=== PATIENT | male | born 1930 | race Caucasian/White ===

== ENCOUNTER → 2019-11-17 | Outpatient (CLI) | payer MEDICARE ==
[~2019-11-17] MED LIST: CIPR500T86 PO; DIPH25CA57 PO; FLAVOXATE PO; INUL2TAB4 PO; LEVO25TA4 PO; METF500T17 PO; OMEG-69 PO; PROB500T PO; SENN8.6T98 PO; SERT100T PO; TAMS-14 PO
[2019-11-17 12:42] LABS: BASOPHIL # 0.1 10^3/uL (0.0-0.1); BASOPHIL % 0.7 % (0.0-0.2); EOSINOPHIL # 0.2 10^3/uL (0.0-0.2); EOSINOPHIL % 1.8 % (0.0-5.0); LYMPHOCYTES % 22.5 % (24.0-44.0); MEAN CORP HGB 29.2 pg (26-34); MONOCYTES # 0.6 10^3/uL (0.3-0.8); MONOCYTES % 6.9 % (5.0-12.0); NEUTROPHIL # 5.8 10^3/uL (1.8-7.7); NEUTROPHILS % 65.4 % (41.0-85.0); PLATELET COUNT 226 10^3/uL (150-400); RED CELL DISTRIBUTION WIDTH 13.7 % (11.5-14.5)
[2019-11-17 13:49] LABS: CALCIUM 9.7 mg/dL (8.4-10.5); CARBON DIOXIDE 24.5 mmol/L (20.0-32)
== END | disposition home or self-care (01) ==
LOC: LAB 11:56
PROVIDERS: ATTEND Nurse Practitioner Adult Health
DX: E11.65 Type 2 diabetes mellitus with hyperglycemia (principal); N42.30 Unspecified dysplasia of prostate; R39.15 Urgency of urination; Y92.017 Garden or yard in single-family (private) house as the place of occurrence of the external cause
CPT/HCPCS: 36415; 80053; 80061; 83036; 84153; 84436; 84439; 84443; 85025

== ENCOUNTER 2019-12-27 11:59 | Observation (INO) | payer MEDICARE ==
[~2019-12-27] VITALS: Ht 182.9 cm; Wt 77.1 kg
[2019-12-27] VITALS (8 sets, daily range): BP systolic 122–169; BP diastolic 61–96
[~2019-12-27 11:59] MED LIST changes: -LEVO25TA4 PO
--- NOTE | 2019-12-27 12:30 | NUR ---
ARRIVAL PATIENT ARRIVED TO ED[facility] AMBULATORY, C/O OF A FALL X2 WEEKS AGO, WAS SEEN IN THE ED AND CLEARED TO GO HOME, SINCE FALL PATIENT HAS NOT BEEN ABLE TO WALK AND IS NEEDING XTRA HELP ON ADL'S, WENT TO SEE PCP AND SENT TO THE ED FOR EVAL. PATIENT ASSISTED TO THE BED, VITAL SIGNS OBTAINED AND DOCTOR JOSEFINA TO ROOM TO SEE PATIENT.
[2019-12-27] MEDS ORDERED: NS 1000ML 1,000 ML IV STA (12:31)
--- NOTE | 2019-12-27 12:40 | ER.PDOC ---
General Chief Complaint: Trauma Stated Complaint: BACK PAIN, GENERALIZED WEAKNESS TRAVEL OUT OF US: No Time seen by MD: 12:36 Source: patient Exam Limitations: no limitations History of Present Illness Initial Comments Back pain and generalized weakness for 2 weeks. Patient fell 2 weeks ago and was seen here and had CT spine without a fracture. Since discharged, he is not able to get up and move around as usual, still complaining of lower back/hip pain and refusing to eat. His recently. No chest pain or SOB. Severity: moderate Associated Symptoms: weakness Allergies: Coded Allergies: No Known Allergies (Unverified , 04/19/19) Home Meds Active Scripts Metformin Hcl (METFORMIN HCL) 500 Mg Tablet, 1 TAB PO BID, #60 TAB 3 Refills Prov:BRUNA ABARCA MD 04/20/19 Reported Medications Sertraline Hcl (ZOLOFT) 100 Mg Tablet, 1 TAB PO DAILY, #30 TAB 2 Refills 12/27/19 Levothyroxine Sodium (LEVOTHYROXINE SODIUM) 25 Mcg Tablet, 1 TAB PO DAILY, #90 TAB 3 Refills 12/27/19 Sertraline Hcl (ZOLOFT) 100 Mg Tablet, 1 TAB PO DAILY, #30 TAB 5 Refills 04/19/19 Probenecid (PROBENECID) 500 Mg Tablet, 500 MG PO DAILY24, TAB 04/19/19 Discontinued Scripts Ciprofloxacin Hcl (CIPRO) 500 Mg Tablet, 500 MG PO BID, #20 Prov:HEATHER VALDES MD 04/22/19 Inulin (Fiber Gummies) 2 Gram Tab.chew, 1 TAB PO QD PRN for CONSTIPATION for 30 Days, #30 TAB 0 Refills Prov:BRUNA ABARCA MD 04/20/19 Diphenhydramine Hcl (BENADRYL) 25 Mg Capsule, 1 CAP PO HS PRN for SLEEP for 30 Days, #30 CAP 0 Refills Prov:BRUNA ABARCA MD 04/20/19 [place]-3 Fatty Acids/Fish Oil (FISH OIL 1,000 MG SOFTGEL) 1 Each Capsule, 1 CAP PO QD for 30 Days, #30 CAP 0 Refills Prov:BRUNA ABARCA MD 04/20/19 Sennosides (SENOKOT) 8.6 Mg Tablet, 1 TAB PO BID for 20 Days, #40 TAB 0 Refills Prov:BRUNA ABARCA MD 04/20/19 [Flavoxate] No Conflict Check, 100 PO QID Prov:RIMA,BRUNA Xiong MD 04/20/19 Past Medical History Medical History: cancer, diabetes, thyroid disease, other Surgical History: cancer surgery Social History Alcohol Use: none Drug Use: none Review of Systems Constitutional: see HPI Respiratory: no symptoms reported Cardiovascular: no symptoms reported Gastrointestinal: no symptoms reported Genitourinary: no symptoms reported Musculoskeletal: see HPI Skin: no symptoms reported All Other Systems: Reviewed and Negative Physical Exam General Appearance: No Apparent Distress, WD/WN Neck: Non-Tender, Full Range of Motion, Supple, Normal Inspection Respiratory: chest non-tender, lungs clear, normal breath sounds, no r espiratory distress, no accessory muscle use CVS: reg rate & rhythm, no murmur, no gallop, pulses nml, nml capillary refill Gastrointestinal: Normal Bowel Sounds, No Organomegaly, No Pulsatile Mass, Non Tender Back: Vertebral Tenderness (L spine) Extremities: Normal Range of Motion, Other (tenderness with movement of both hips) 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 (12/27/19 12:31) Urinalysis (12/27/19 12:31) Troponin I (12/27/19 12:31) Ekg-Routine (12/27/19 12:31) Xr Chest 1v (12/27/19 12:31) Ct Pelvis Wo Iv Contrast (12/27/19 12:31) 0.9 % Sodium Chloride (Ns 1000ml) (12/27/19 12:31) 0.9 % Sodium Chloride (Ns 1000ml) (12/27/19 12:41) Urine Culture (12/27/19 13:45) Vital Signs Date Time Temp Pulse Resp B/P (MAP) Pulse Ox O2 Delivery O2 Flow Rate FiO2 12/27/19 12:23 97.3 86 18 141/79 (99) 95 Room Air 12/27/19 12:23 97.3 86 18 12/27/19 12:23 97.3 86 18 95 Administered Medications Medications (Trade) Dose Ordered Sig/Alberto Route PRN Reason Start Time Stop Time Status Last Admin Dose Admin Sodium Chloride 1,000 ml @ 1,200 mls/hr Q50M STAT IV 12/27/19 12:31 12/27/19 13:20 DC 12/27/19 12:50 1,200 MLS/HR Laboratory Tests Test 12/27/19 12:41 12/27/19 13:30 White Blood Count 10.2 10^3/uL (4.5-11.0) Red Blood Count 5.30 10^6/uL (4.50-5.90) Hemoglobin 15.3 g/dL (13.9-16.3) Hematocrit 45.0 % (37.0-53.0) Mean Corpuscular Volume 84.9 fL (78-100) Mean Corpuscular Hemoglobin 28.9 pg (26-34) Mean Corpuscular Hemoglobin Concent 34.0 g/dL (33-36.5) Red Cell Distribution Width 13.7 % (11.5-14.5) Platelet Count 226 10^3/uL (150-400) Mean Platelet Volume 9.9 fL (7.8-11.0) Neutrophils (%) (Auto) 70.5 % (41.0-85.0) Lymphocytes (%) (Auto) 17.5 % (24.0-44.0) L Monocytes (%) (Auto) 7.5 % (5.0-12.0) Neutrophils # (Auto) 7.2 10^3/uL (1.8-7.7) Lymphocytes # (Auto) 1.79 10^3/uL1 (1.0-4.8) Monocytes # (Auto) 0.8 10^3/uL (0.3-0.8) Absolute Immature Granulocyte (auto 0.31 10^3 u/L (0-2) Absolute Eosinophils (auto) 0.1 10^3/uL (0.0-0.2) Immature Granulocytes % 3.00 % (0.00-0.50) H Eosinophils % 1.0 % (0.0-5.0) Basophils % 0.5 % (0.0-0.2) H Basophils # 0.1 10^3/uL (0.0-0.1) Prothrombin Time 10.7 SEC (9.3-11.3) Prothrombin Time INR (Non-Therap) 1.1 Activated Partial Thromboplast Time 25.2 SEC (24.67-30.72) Sodium Level 136 mmol/L (132-145) Potassium Level 4.1 mmol/L (3.6-5.2) Chloride Level 100.0 mmol/L (96-109) Carbon Dioxide Level 23.8 mmol/L (20.0-32) Anion Gap 16.3 Blood Urea Nitrogen 38 mg/dL (7-18) H Creatinine 1.95 mg/dL (0.59-1.40) H Estimated GFR () 39.6 (>/=60) Est GFR (CKD-EPI)(Non-Afr Maldivian) 32.7 (>/=60) BUN/Creatinine Ratio 19.0 Glucose Level 166 mg/dL (70-110) H Calcium Level 9.4 mg/dL (8.4-10.5) Total Bilirubin 0.5 mg/dL (0.2-1.0) Aspartate Amino Transferase (AST) 16 U/L (0-35) Alanine Aminotransferase (ALT) 21 U/L (12-78) Alkaline Phosphatase 93 U/L (50-136) Total Creatine Kinase 43 U/L (39-308) Creatine Kinase MB 1.6 ng/mL (0.5-3.6) Troponin I 0.02 ng/mL (0.00-0.05) Total Protein 7.0 g/dL (6.4-8.2) Albumin 3.4 g/dL (3.4-5.0) Globulin 3.6 Albumin/Globulin Ratio 0.944 Urine Collection Type UNKNOWN Urine Color YELLOW (YELLOW) Urine Appearance CLEAR (CLEAR) Urine Bilirubin NEGATIVE MG/DL (NEGATIVE) Urine Ketones NEGATIVE (NEGATIVE) Urine Specific [place] 1.025 (1.005-1.035) Urine pH 5.5 (5.0-6.0) Urine Protein 100 mg/dL (NEGATIVE) H Urine Urobilinogen 0.2 (NEGATIVE) Urine Nitrate NEGATIVE (NEGATAIVE) Urine Leukocyte Esterase NEGATIVE (NEGATIVE) Urine Blood TRACE (NEGATIVE) Urine RBC 2-5 RBC/HPF (NONE SEEN) Urine WBC 0-2 WBC/HPF (0-2) Urine Squamous Epithelial Cells FEW #/HPF (FEW) Urine Bacteria FEW (NONE SEEN) H Urine Glucose NORMAL (NEGATIVE) EKG/XRAY/CT/US EKG: NSR, no ST T wave changes EKG Comments: Rate 84, Normal [place] [facility] DEPART Departure Time of Disposition: 14:09 Disposition: 09 ADMITTED INPATIENT Impression: Primary Impression: Acute renal insufficiency Additional Impressions: Dehydration Generalized weakness FTT (failure to thrive) in adult Recurrent falls Condition: Stable Referrals: DAVID LESLIE PHYSICAL THERAPY SUPERVISOR (PCP) PRIMARY CARE PROVIDER Comments Admitted to Dr. Calero Duration or Time Spent with Pa: 60 min Problem Qualifiers JUAN ROCHA MD Dec 27, 2019 12:40
[2019-12-27] MEDS ORDERED: NS 1000ML 1,000 ML ONE (12:41)
[2019-12-27 12:44] LABS: BASOPHIL # 0.1 10^3/uL (0.0-0.1); BASOPHIL % 0.5 % (0.0-0.2); EOSINOPHIL # 0.1 10^3/uL (0.0-0.2); LYMPHOCYTES # 1.79 10^3/uL1 (1.0-4.8); LYMPHOCYTES % 17.5 % (24.0-44.0); MEAN CORP HGB 28.9 pg (26-34); MONOCYTES # 0.8 10^3/uL (0.3-0.8); MONOCYTES % 7.5 % (5.0-12.0); NEUTROPHIL # 7.2 10^3/uL (1.8-7.7); NEUTROPHILS % 70.5 % (41.0-85.0); PLATELET COUNT 226 10^3/uL (150-400); RED CELL DISTRIBUTION WIDTH 13.7 % (11.5-14.5)
--- NOTE | 2019-12-27 12:44 | PCM.EKG ---
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
[2019-12-27] MEDS ORDERED: LEVO25TA4 PO (12:50)
[2019-12-27] MEDS ORDERED: SERT100T PO (12:50)
--- NOTE | 2019-12-27 12:55 | NUR ---
CAT SCAN PATIENT TO CAT SCAN WITH JERONIMO FROM RADIOLOGY.
--- NOTE | 2019-12-27 13:05 | NUR ---
CAT SCAN PATIENT BACK FROM CAT SCAN.
[2019-12-27 13:14] LABS: CALCIUM 9.4 mg/dL (8.4-10.5); CARBON DIOXIDE 23.8 mmol/L (20.0-32)
--- NOTE | 2019-12-27 13:17 | DIREP ---
PROCEDURE:CHEST 1 VIEW COMPARISON:[facility], CR, XRAY CHEST 2 VWS, 11/18/2019, 08:21 AM. INDICATIONS:Weakness FINDINGS: LUNGS/PLEURA:Slight prominence of the interstitium in the peripheral aspects of the left mid lung and in the peripheral aspects of the right mid and lower lungs. Interstitial infiltrates cannot be excluded. Recommend clinical correlation to rule out viral pneumonia. Scarring in the right lower lobe. Shallow expansion of the lungs. No air bronchograms are seen. No large effusions identified. VASCULATURE:Normal. Unremarkable pulmonary vasculature. CARDIAC:The cardiac silhouette is magnified on the AP view. Aorta is tortuous. MEDIASTINUM:Normal. No visible mass or adenopathy. BONES:Normal. No fracture or visible bony lesion. OTHER:Negative. CONCLUSION:New interstitial findings in the both the lungs, recommend clinical correlation to rule out interstitial pneumonia. Dictated by: Jules Jackson MD on 12/27/2019 at 01:14 PM
--- NOTE | 2019-12-27 13:36 | DIREP ---
PROCEDURE:CT PELVIS W/O COMPARISON:CR, XRAY SPINE LUMBAR MIN 4 VWS, 10/08/2016, 02:28 PM. [facility], CT, CT SPINE LUMBAR W/O, 12/14/2019, 07:03 PM. CR, XRAY PELVIS 1-2 VWS, 12/08/2017, 11:55 AM. INDICATIONS:pain S/P fall TECHNIQUE:CT images were created without intravenous contrast. FINDINGS: PELVIC NODES:Normal. PELVIC ORGANS:Colonic diverticula. Normal appendix. TURP defect. BONES:No acute fracture. Stable sclerotic foci in the left iliac bone adjacent to the SI joint and above the acetabular roof. OTHER:Diffuse atherosclerotic calcification. CONCLUSION:No acute bony abnormality. Dictated by: Kimberly Erickson MD on 12/27/2019 at 01:27 PM
[2019-12-27 13:55] LABS: APPEARANCE,URINE CLEAR (CLEAR); BILIRUBIN,URINE NEGATIVE (NEGATIVE); UA COLOR YELLOW (YELLOW); UROBILINOGEN,URINE 0.2 (NEGATIVE)
--- NOTE | 2019-12-27 14:03 | NUR ---
JOY RODRIGUEZA ON THE PHONE WITH DOCTOR HAMILTON DISCUSSING ADMISSION.
[2019-12-27] MEDS ORDERED: HNS 1000ML 1,000 ML IV STA (14:10)
[2019-12-27] MEDS ORDERED: D5W-1/2NS 1000ML 1,000 ML ONE (14:21)
[2019-12-27] MEDS ORDERED: HNS 1000ML 1,000 ML ONE (14:27)
--- NOTE | 2019-12-27 15:38 | PRM.PN ---
Subjective Subjective Date: Dec 27, 2019 Time: 15:38 Subjective This note serves as patient's initial history and physical Patient recently lost his and he has had recurrent falls at home he has had 2 ER visits recently with extensive imaging that symptoms show no fracture previous head CT negative for acute intracranial process and no head trauma since. Family reports that patient has not been able to mobilize as well after his fall and is having difficulty caring for himself at home despite starting home health daily. 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 He was found to have a new onset heart murmur in the setting of recurrent falls and is being admitted to the hospitalist service for failure to thrive recurrent falls renal insufficiency and further work-up of heart murmur Patient History: Cerebrovascular disorder 33 FATHER, , Age:60 years and older FH: prostate cancer V19 CHILD V19 CHILD V19 CHILD Unknown G8 BROTHER, G8 BROTHER, G8 BROTHER, No Family History of: Alzheimer's disease Asthma Chronic obstructive pulmonary disease Congestive heart failure Diabetes insipidus Diabetes mellitus Hypertension Parkinson's disease VTE VTE Risk Total Score: 5 VTE Risk Score VTE Risk: Score 0-1 = Low Risk (Aggressive mobilization; early ambulation; no VTE prophylaxis required) Score 2: Moderate Risk (Intermittent/Pneumatic Compression Device OR Lovenox/Heparin/Coumadin) Score 3-4: High Risk (Intermittent/Pneumatic Compression Device AND Lovenox/Heparin/Coumadin) Score > or =5: Highest Risk (Intermittent/Pneumatic Compression Device AND Lovenox/Heparin/Coumadin) Antico:Hep/LMWH/Coum/Xarelto: Yes Mechanical device ordered: Yes Review of Systems Constitutional: No: Fever, Chills, Sweats, Weakness, Malaise, Other Eyes: No: Pain, Vision change, Conjunctivae inflammation, Eyelid inflammation, Other, Redness ENT: No: Ear pain, Ear discharge, Nose pain, Nose discharge, Nose congestion, Mouth pain, Mouth swelling, Throat pain, Throat swelling, Other Respiratory: No: Cough, Dry, Shortness of breath, SOB with excertion, Wheezing, Hemoptysis, Pleuritic Pain, Sputum, Wheezing, Other Cardiovascular: No: Chest Pain, Palpitations, Orthopnea, Paroxysmal Noc. Dyspnea, Edema, Lt Headedness, Other Gastrointestinal: No: Nausea, Vomiting, Abdominal Pain, Diarrhea, Constipation, Melena, Hematochezia, Other Genitourinary: No Dysuria, No Frequency, No Incontinence, No Hematuria, No Retention, No Other Musculoskeletal: No: other, neck pain, shoulder pain, arm pain, back pain, hand pain, leg pain, foot pain Skin: No: Rash, Lesions, Jaundice, Bruising, Other Neurological: Weakness (generalized) Allergies: Coded Allergies: No Known Allergies (Unverified , 04/19/19) Scheduled Levothyroxine Sodium (Levothyroxine Sodium), 1 TAB PO DAILY, (Reported) Metformin Hcl (Metformin Hcl), 1 TAB PO BID Probenecid (Probenecid), 500 MG PO DAILY24, (Reported) Sertraline Hcl (Zoloft), 1 TAB PO DAILY, (Reported) Sertraline Hcl (Zoloft), 1 TAB PO DAILY, (Reported) Discontinued Medications Ciprofloxacin Hcl (Cipro), 500 MG PO BID Discontinued Reason: Discontinue Diphenhydramine Hcl (Benadryl), 1 CAP PO HS PRN for SLEEP Discontinued Reason: Discontinue Inulin (Fiber Gummies), 1 TAB PO QD PRN for CONSTIPATION Discontinued Reason: Discontinue [place]-3 Fatty Acids/Fish Oil (Fish Oil 1,000 Mg Softgel), 1 CAP PO QD Discontinued Reason: Discontinue Sennosides (Senokot), 1 TAB PO BID Discontinued Reason: Discontinue [Flavoxate], 100 PO QID Discontinued Reason: Discontinue Objective Vitals and I/O Vital Sign - Last 24 Hours 12/27/19 12/27/19 12/27/19 12/27/19 12:23 12:23 12:23 13:00 Temp 97.3 97.3 97.3 97.3 Pulse 86 86 86 85 Resp 18 18 18 18 B/P (MAP) 141/79 (99) 122/61 (81) Pulse Ox 95 95 95 O2 Delivery Room Air Room Air 12/27/19 12/27/19 12/27/19 13:30 14:00 14:40 Temp 97.3 97.3 97.3 Pulse 81 81 86 Resp 18 18 18 B/P (MAP) 145/74 (97) 157/84 (108) 158/86 (110) Pulse Ox 95 95 95 O2 Delivery Room Air Room Air Room Air All Results(Lab/Rad) Laboratory Tests Test 12/27/19 12:41 12/27/19 13:30 White Blood Count 10.2 10^3/uL Red Blood Count 5.30 10^6/uL Hemoglobin 15.3 g/dL Hematocrit 45.0 % Mean Corpuscular Volume 84.9 fL Mean Corpuscular Hemoglobin 28.9 pg Mean Corpuscular Hemoglobin Concent 34.0 g/dL Red Cell Distribution Width 13.7 % Platelet Count 226 10^3/uL Mean Platelet Volume 9.9 fL Neutrophils (%) (Auto) 70.5 % Lymphocytes (%) (Auto) 17.5 % Monocytes (%) (Auto) 7.5 % Neutrophils # (Auto) 7.2 10^3/uL Lymphocytes # (Auto) 1.79 10^3/uL1 Monocytes # (Auto) 0.8 10^3/uL Absolute Immature Granulocyte (auto 0.31 10^3 u/L Absolute Eosinophils (auto) 0.1 10^3/uL Immature Granulocytes % 3.00 % Eosinophils % 1.0 % Basophils % 0.5 % Basophils # 0.1 10^3/uL Prothrombin Time 10.7 SEC Prothrombin Time INR (Non-Therap) 1.1 Activated Partial Thromboplast Time 25.2 SEC Sodium Level 136 mmol/L Potassium Level 4.1 mmol/L Chloride Level 100.0 mmol/L Carbon Dioxide Level 23.8 mmol/L Anion Gap 16.3 Blood Urea Nitrogen 38 mg/dL Creatinine 1.95 mg/dL Estimated GFR () 39.6 Est GFR (CKD-EPI)(Non-Afr [place]an) 32.7 BUN/Creatinine Ratio 19.0 Glucose Level 166 mg/dL Calcium Level 9.4 mg/dL Total Bilirubin 0.5 mg/dL Aspartate Amino Transf (AST/SGOT) 16 U/L Alanine Aminotransferase (ALT/SGPT) 21 U/L Alkaline Phosphatase 93 U/L Total Creatine Kinase 43 U/L Creatine Kinase MB 1.6 ng/mL Troponin I 0.02 ng/mL Total Protein 7.0 g/dL Albumin 3.4 g/dL Globulin 3.6 Albumin/Globulin Ratio 0.944 Urine Collection Type UNKNOWN Urine Color YELLOW Urine Appearance CLEAR Urine Bilirubin NEGATIVE MG/DL Urine Ketones NEGATIVE Urine Specific [place] 1.025 Urine pH 5.5 Urine Protein 100 mg/dL Urine Urobilinogen 0.2 Urine Nitrate NEGATIVE Urine Leukocyte Esterase NEGATIVE Urine Blood TRACE Urine RBC 2-5 RBC/HPF Urine WBC 0-2 WBC/HPF Urine Squamous Epithelial Cells FEW #/HPF Urine Bacteria FEW Urine Glucose NORMAL Current Medications Medications (Trade) Dose Ordered Sig/Alberto Route PRN Reason Start Time Stop Time Status Last Admin Dose Admin Sodium Chloride 1,000 ml @ 1,200 mls/hr Q50M STAT IV 12/27/19 12:31 12/27/19 13:20 DC 12/27/19 12:50 Sodium Chloride 1,000 ml @ ud STK-MED ONCE .ROUTE 12/27/19 12:41 12/27/19 12:43 DC Sodium Chloride 1,000 ml @ 80 mls/hr [id number] STAT IV 12/27/19 14:10 12/28/19 02:39 12/27/19 14:25 Sodium Chloride 1,000 ml @ ud STK-MED ONCE .ROUTE 12/27/19 14:27 12/27/19 14:29 DC Course Sepsis Qualifier/Stage: NO DEFINITE RISK Duration or Total Time Spent w: 60 min Vitals & review Data Vital Sign - Last 24 Hours 12/27/19 12/27/19 12/27/19 12/27/19 12:23 12:23 12:23 13:00 Temp 97.3 97.3 97.3 97.3 Pulse 86 86 86 85 Resp 18 18 18 18 B/P (MAP) 141/79 (99) 122/61 (81) Pulse Ox 95 95 95 O2 Delivery Room Air Room Air 12/27/19 12/27/19 12/27/19 13:30 14:00 14:40 Temp 97.3 97.3 97.3 Pulse 81 81 86 Resp 18 18 18 B/P (MAP) 145/74 (97) 157/84 (108) 158/86 (110) Pulse Ox 95 95 95 O2 Delivery Room Air Room Air Room Air Laboratory Tests Test 12/27/19 12:41 12/27/19 13:30 White Blood Count 10.2 10^3/uL Red Blood Count 5.30 10^6/uL Hemoglobin 15.3 g/dL Hematocrit 45.0 % Mean Corpuscular Volume 84.9 fL Mean Corpuscular Hemoglobin 28.9 pg Mean Corpuscular Hemoglobin Concent 34.0 g/dL Red Cell Distribution Width 13.7 % Platelet Count 226 10^3/uL Mean Platelet Volume 9.9 fL Neutrophils (%) (Auto) 70.5 % Lymphocytes (%) (Auto) 17.5 % Monocytes (%) (Auto) 7.5 % Neutrophils # (Auto) 7.2 10^3/uL Lymphocytes # (Auto) 1.79 10^3/uL1 Monocytes # (Auto) 0.8 10^3/uL Absolute Immature Granulocyte (auto 0.31 10^3 u/L Absolute Eosinophils (auto) 0.1 10^3/uL Immature Granulocytes % 3.00 % Eosinophils % 1.0 % Basophils % 0.5 % Basophils # 0.1 10^3/uL Prothrombin Time 10.7 SEC Prothrombin Time INR (Non-Therap) 1.1 Activated Partial Thromboplast Time 25.2 SEC Sodium Level 136 mmol/L Potassium Level 4.1 mmol/L Chloride Level 100.0 mmol/L Carbon Dioxide Level 23.8 mmol/L Anion Gap 16.3 Blood Urea Nitrogen 38 mg/dL Creatinine 1.95 mg/dL Estimated GFR () 39.6 Est GFR (CKD-EPI)(Non-Afr [place]wanan) 32.7 BUN/Creatinine Ratio 19.0 Glucose Level 166 mg/dL Calcium Level 9.4 mg/dL Total Bilirubin 0.5 mg/dL Aspartate Amino Transf (AST/SGOT) 16 U/L Alanine Aminotransferase (ALT/SGPT) 21 U/L Alkaline Phosphatase 93 U/L Total Creatine Kinase 43 U/L Creatine Kinase MB 1.6 ng/mL Troponin I 0.02 ng/mL Total Protein 7.0 g/dL Albumin 3.4 g/dL Globulin 3.6 Albumin/Globulin Ratio 0.944 Urine Collection Type UNKNOWN Urine Color YELLOW Urine Appearance CLEAR Urine Bilirubin NEGATIVE MG/DL Urine Ketones NEGATIVE Urine Specific [place] 1.025 Urine pH 5.5 Urine Protein 100 mg/dL Urine Urobilinogen 0.2 Urine Nitrate NEGATIVE Urine Leukocyte Esterase NEGATIVE Urine Blood TRACE Urine RBC 2-5 RBC/HPF Urine WBC 0-2 WBC/HPF Urine Squamous Epithelial Cells FEW #/HPF Urine Bacteria FEW Urine Glucose NORMAL Current Medications Medications (Trade) Dose Ordered Sig/Alberto PRN Reason Start Time Stop Time Status Last Admin Sodium Chloride 1,000 ml @ 80 mls/hr [id number] STAT 12/27/19 14:10 12/28/19 02:39 12/27/19 14:25 LEVEL 1 SEPSIS INFECTION CRITE: Recent Invasive Procedure LEVEL 2-SIRS (LIST ALL THAT AP: None/Not assessed Cardiovascular Evidence: Not Assessed or None Hematologic Evidence: None/Not assessed Hepatic Evidence: None/Not assessed Metabolic Evidence: None/Not assessed Neurological Evidence: None/Not assessed Respiratory Evidence: None/Not assessed Renal Evidence: None/Not assessed O2 Sat by Pulse Oximetry: 95 Assessment/Plan Assessment/Plan Assessment/Plan Assessment: 89-year-old male with frequent falls and new heart murmur who is generalized weakness and has not been doing well at home since the passing of his last week he is admitted to the hospitalist service for further evaluation and treatment of his renal insufficiency generalized weakness, adult failure to thrive and new onset heart murmur Plan: Heart murmur: Echocardiogram obtained and patient has severe MR with calcified valve likely not a surgical candidate given his comorbidities and age will discuss with family LVEF 65-70% Recurrent falls: PT OT consult falls precautions Renal insufficiency: This appears to be chronic based on past creatinine levels we will continue to monitor DVT prophylaxis: SCDs and low-dose enoxaparin given kidney function Diabetes mellitus continue metformin twice daily Hypothyroidism continue levothyroxine Depression continue sertraline Dispo SNF versus home health DNR on file and discussed with family JOHNATHAN HAMILTON MD Dec 27, 2019 15:38
[2019-12-27] MEDS ORDERED: ZOFRAN IV PRN (17:00)
[2019-12-27] MEDS ORDERED: BENEMID PO SCH (17:00)
[2019-12-27] MEDS ORDERED: GLUCOPHAGE PO SCH (17:00)
--- NOTE | 2019-12-27 18:04 | PCM.ECHO ---
APPROVED REPORT EXAM: Comprehensive 2D, Doppler, and color-flow Echocardiogram. Patient Location: IN-PATIENT Indications Murmur Recurrent falls 2D Dimensions LVOT Diameter 2.11 (1.8-2.4cm) LVEF(%) 45.97 (>50%) M-Mode Dimensions RVDd 2.20 (2.1-3.2cm) Left Atrium(MM) 5.55 (2.5-4.0cm) IVSd 1.05 (0.7-1.1cm) Aortic Root 3.05 (2.2-3.7cm) LVDd 6.10 (4.0-5.6cm) Aortic Cusp Exc 1.45 (1.5-2.0cm) PWd 0.80 (0.7-1.1cm) MV EPSS 2.06 (<0.5cm) IVSs 1.55 cm FS (%) 27.80 % LVDs 4.40 (2.0-3.8cm) ESV(Teich) 89.33 ml PWs 1.60 cm LVEF(%) 53.03 (>50%) Volumes Biplane 2D LV Volumes Biplane 2D LA Volumes LVEDv A4C 139.65 mL LA ESV Index LVESv A4C 75.45 mL Aortic Valve AoV Peak Adrien. 1.35 m/s AoV VTI 19.35 cm AO Peak GR. 7.75 mmHg AO Mean GR. 3.75 mmHg LVOT VTI 12.11 cm LVOT Peak Adrien. 0.70 m/s ADELINE(VTI)/BSA 2.19 cm2/m2 ADELINE (VTI) 2.19 cm2 Mitral Valve MV E Velocity 1.40m/s MR Peak Gr. 127.00mmHg Pulmonary Valve PV Peak Velocity 0.55m/s PV Peak Grad. 1.20mmHg RVOT VTI 8.58cm LEFT VENTRICLE The left ventricle is normal size. The left ventricular systolic function is normal. The left ventricular ejection fraction is within the normal range. There is normal left ventricular wall thickness. There is normal LV segmental wall motion. There is no ventricular septal defect visualized. No left ventricle thrombus noted on this study. LVEF is 65-70%. RIGHT VENTRICLE The right ventricle is normal size. The right ventricular systolic function is normal. There is normal right ventricular wall thickness. ATRIA Left atrium is moderately dilated. The right atrium size is normal. The interatrial septum is intact with no evidence for an atrial septal defect. AORTIC VALVE The aortic valve is normal in structure. There is no aortic valvular stenosis. Moderate aortic regurgitation. There is no aortic valvular vegetation. MITRAL VALVE Mitral valve leaflets are severely thickened. Severe mitral annular calcification. There is no mitral valve stenosis. Severe mitral regurgitation. There is no evidence of mitral valve vegetations. TRICUSPID VALVE The tricuspid valve is normal in structure. There is no tricuspid valve stenosis. Moderate tricuspid regurgitation. There is no tricuspid valve vegetations. PULMONIC VALVE Pulmonic valve is not well visualized. There is no pulmonic valvular stenosis. Mild pulmonic regurgitation. GREAT VESSELS The aortic root is normal in size. Pulmonary artery is not well visualized. Aortic arch is not well visualized. IVC is not well visualized. PERICARDIUM There is no pericardial effusion. There is no pleural effusion. Other Information Study Quality: Fair <Conclusion> The left ventricular systolic function is normal. LVEF is 65-70%. Moderate aortic regurgitation. Severe mitral annular calcification. Severe mitral regurgitation. Moderate tricuspid regurgitation. Mild pulmonic regurgitation. Electronically signed by : CURT CHILDERS. 12/27/2019 18:04:17
[2019-12-27] MEDS: GLUCOPHAGE PO SCH (21:37)
[2019-12-27] MEDS ORDERED: LOVENOX SQ SCH (22:00)
[2019-12-27] MEDS: TYLENOL #3 PO PRN (23:28)
[2019-12-28] MEDS ORDERED: NS 1000ML 1,000 ML ONE (04:07)
[2019-12-28 04:27] VITALS: BP 166/74
[2019-12-28 05:30] LABS: BASOPHIL # 0.1 10^3/uL (0.0-0.1); BASOPHIL % 0.6 % (0.0-0.2); EOSINOPHIL # 0.2 10^3/uL (0.0-0.2); EOSINOPHIL % 1.8 % (0.0-5.0); LYMPHOCYTES # 2.06 10^3/uL1 (1.0-4.8); MEAN CORP HGB 29.5 pg (26-34); MONOCYTES # 0.7 10^3/uL (0.3-0.8); NEUTROPHIL # 5.7 10^3/uL (1.8-7.7); NEUTROPHILS % 63.2 % (41.0-85.0); PLATELET COUNT 202 10^3/uL (150-400); RED CELL DISTRIBUTION WIDTH 13.7 % (11.5-14.5)
[2019-12-28 05:54] LABS: CALCIUM 8.8 mg/dL (8.4-10.5); CARBON DIOXIDE 22.6 mmol/L (20.0-32)
[2019-12-28] MEDS: TYLENOL #3 PO PRN (06:05)
[2019-12-28] MEDS ORDERED: LEVOTHYROXINE SODIUM PO SCH (06:30)
[2019-12-28] MEDS: GLUCOPHAGE PO SCH (08:23)
[2019-12-28] MEDS ORDERED: ZOLOFT PO SCH (09:00)
[2019-12-28] MEDS ORDERED: BENEMID PO SCH (09:00)
--- NOTE | 2019-12-28 10:30 | NUR ---
DISCHARGE PLAN CASE MANAGEMENT VISITED WITH PT AND GRANDDAUGHTER AT BEDSIDE CONCERNING DISCHARGE PLAN AND NEEDS. LIVES AT HOME WITH ALONE. FAMILY HAS BEEN SITTING WITH PATIENT DAILY D/T HIS NEW WEAKNESS. HAS DME INCLUDING CANE. DENIES NEED FOR HOME OXYGEN AT THIS TIME. CURRENTLY HAS [facility] IN PLACE. PCP: IS DAVID LESLIE NP. DISCHARGE PLAN IS TO DC HOME WITH FAMILY SITTERS AND [facility] TO FOLLOW. CM WILL CONTINUE TO FOLLOW FOR DISCHARGE NEEDS.
--- NOTE | 2019-12-28 11:48 | PRM.PN ---
Subjective Subjective Date: Dec 28, 2019 Time: 11:48 Subjective Patient states that he feels great today and would like to go home. Talked to the family about severe mitral valve dysfunction and the decline intervention due to patient's advanced age and mental status Patient History: Cerebrovascular disorder 33 FATHER, , Age:60 years and older FH: prostate cancer V19 CHILD V19 CHILD V19 CHILD Unknown G8 BROTHER, G8 BROTHER, G8 BROTHER, No Family History of: Alzheimer's disease Asthma Chronic obstructive pulmonary disease Congestive heart failure Diabetes insipidus Diabetes mellitus Hypertension Parkinson's disease VTE VTE Risk Total Score: 3 VTE Risk Score VTE Risk: Score 0-1 = Low Risk (Aggressive mobilization; early ambulation; no VTE prophylaxis required) Score 2: Moderate Risk (Intermittent/Pneumatic Compression Device OR Lovenox/Heparin/Coumadin) Score 3-4: High Risk (Intermittent/Pneumatic Compression Device AND Lovenox/Heparin/Coumadin) Score > or =5: Highest Risk (Intermittent/Pneumatic Compression Device AND Lovenox/Heparin/Coumadin) Antico:Hep/LMWH/Coum/Xarelto: Yes Mechanical device ordered: Yes Review of Systems Constitutional: No: Fever, Chills, Sweats, Weakness, Malaise, Other Eyes: No: Pain, Vision change, Conjunctivae inflammation, Eyelid inflammation, Other, Redness ENT: No: Ear pain, Ear discharge, Nose pain, Nose discharge, Nose congestion, Mouth pain, Mouth swelling, Throat pain, Throat swelling, Other Respiratory: No: Cough, Dry, Shortness of breath, SOB with excertion, Wheezing, Hemoptysis, Pleuritic Pain, Sputum, Wheezing, Other Cardiovascular: No: Chest Pain, Palpitations, Orthopnea, Paroxysmal Noc. Dyspnea, Edema, Lt Headedness, Other Gastrointestinal: No: Nausea, Vomiting, Abdominal Pain, Diarrhea, Constipation, Melena, Hematochezia, Other Genitourinary: No Dysuria, No Frequency, No Incontinence, No Hematuria, No Retention, No Other Musculoskeletal: No: other, neck pain, shoulder pain, arm pain, back pain, hand pain, leg pain, foot pain Skin: No: Rash, Lesions, Jaundice, Bruising, Other Neurological: Weakness (generalized) Allergies: Coded Allergies: No Known Allergies (Unverified , 04/19/19) Scheduled Levothyroxine Sodium (Levothyroxine Sodium), 1 TAB PO DAILY, (Reported) Metformin Hcl (Metformin Hcl), 1 TAB PO BID Probenecid (Probenecid), 500 MG PO DAILY24, (Reported) Sertraline Hcl (Zoloft), 1 TAB PO DAILY, (Reported) Discontinued Medications Ciprofloxacin Hcl (Cipro), 500 MG PO BID Discontinued Reason: Discontinue Diphenhydramine Hcl (Benadryl), 1 CAP PO HS PRN for SLEEP Discontinued Reason: Discontinue Inulin (Fiber Gummies), 1 TAB PO QD PRN for CONSTIPATION Discontinued Reason: Discontinue [place]-3 Fatty Acids/Fish Oil (Fish Oil 1,000 Mg Softgel), 1 CAP PO QD Discontinued Reason: Discontinue Sennosides (Senokot), 1 TAB PO BID Discontinued Reason: Discontinue Sertraline Hcl (Zoloft), 1 TAB PO DAILY, (Reported) Discontinued Reason: Discontinue [Flavoxate], 100 PO QID Discontinued Reason: Discontinue Objective Vitals and I/O Vital Sign - Last 24 Hours 12/27/19 12/27/19 12/27/19 12/27/19 12:23 12:23 12:23 13:00 Temp 97.3 97.3 97.3 97.3 Pulse 86 86 86 85 Resp 18 18 18 18 B/P (MAP) 141/79 (99) 122/61 (81) Pulse Ox 95 95 95 O2 Delivery Room Air Room Air 12/27/19 12/27/19 12/27/19 12/27/19 13:30 14:00 14:40 15:19 Temp 97.3 97.3 97.3 Pulse 81 81 86 Resp 18 18 18 B/P (MAP) 145/74 (97) 157/84 (108) 158/86 (110) Pulse Ox 95 95 95 O2 Delivery Room Air Room Air Room Air Room Air 12/27/19 12/27/19 12/27/19 12/28/19 17:33 19:51 23:35 01:06 Temp 97.6 98.4 97.8 Pulse 75 93 62 Resp 18 18 18 B/P (MAP) 145/85 (105) 169/96 (120) 145/95 (112) Pulse Ox 96 95 96 O2 Delivery Room Air Room Air Room Air Room Air 12/28/19 12/28/19 04:27 05:00 Temp 98.2 Pulse 78 Resp 18 B/P (MAP) 166/74 (104) Pulse Ox 90 O2 Delivery Room Air Room Air Intake and Output 12/28/19 07:00 Intake Total 1200 ml Balance 1200 ml General: Alert, Cooperative, Other (demnetia at baseline) HEENT: Atraumatic Neck: Supple, No JVD Lungs: Clear to auscultation Heart: Regular rate, Other (significant holosystolic murmur) Abdomen: Normal bowel sounds Extremities: No clubbing, No cyanosis Skin: No breakdown Neuro: Normal gait, Normal speech, Strength at 5/5 X4 ext, Normal tone, Sensation intact, Cranial nerves 3-12 NL Psych/Mental Status: Mood NL All Results(Lab/Rad) Laboratory Tests Test 12/27/19 12:41 12/27/19 13:30 White Blood Count 10.2 10^3/uL Red Blood Count 5.30 10^6/uL Hemoglobin 15.3 g/dL Hematocrit 45.0 % Mean Corpuscular Volume 84.9 fL Mean Corpuscular Hemoglobin 28.9 pg Mean Corpuscular Hemoglobin Concent 34.0 g/dL Red Cell Distribution Width 13.7 % Platelet Count 226 10^3/uL Mean Platelet Volume 9.9 fL Neutrophils (%) (Auto) 70.5 % Lymphocytes (%) (Auto) 17.5 % Monocytes (%) (Auto) 7.5 % Neutrophils # (Auto) 7.2 10^3/uL Lymphocytes # (Auto) 1.79 10^3/uL1 Monocytes # (Auto) 0.8 10^3/uL Absolute Immature Granulocyte (auto 0.31 10^3 u/L Absolute Eosinophils (auto) 0.1 10^3/uL Immature Granulocytes % 3.00 % Eosinophils % 1.0 % Basophils % 0.5 % Basophils # 0.1 10^3/uL Prothrombin Time 10.7 SEC Prothrombin Time INR (Non-Therap) 1.1 Activated Partial Thromboplast Time 25.2 SEC Sodium Level 136 mmol/L Potassium Level 4.1 mmol/L Chloride Level 100.0 mmol/L Carbon Dioxide Level 23.8 mmol/L Anion Gap 16.3 Blood Urea Nitrogen 38 mg/dL Creatinine 1.95 mg/dL Estimated GFR () 39.6 Est GFR (CKD-EPI)(Non-Afr Indonesian) 32.7 BUN/Creatinine Ratio 19.0 Glucose Level 166 mg/dL Calcium Level 9.4 mg/dL Total Bilirubin 0.5 mg/dL Aspartate Amino Transf (AST/SGOT) 16 U/L Alanine Aminotransferase (ALT/SGPT) 21 U/L Alkaline Phosphatase 93 U/L Total Creatine Kinase 43 U/L Creatine Kinase MB 1.6 ng/mL Troponin I 0.02 ng/mL Total Protein 7.0 g/dL Albumin 3.4 g/dL Globulin 3.6 Albumin/Globulin Ratio 0.944 Urine Collection Type UNKNOWN Urine Color YELLOW Urine Appearance CLEAR Urine Bilirubin NEGATIVE MG/DL Urine Ketones NEGATIVE Urine Specific [place] 1.025 Urine pH 5.5 Urine Protein 100 mg/dL Urine Urobilinogen 0.2 Urine Nitrate NEGATIVE Urine Leukocyte Esterase NEGATIVE Urine Blood TRACE Urine RBC 2-5 RBC/HPF Urine WBC 0-2 WBC/HPF Urine Squamous Epithelial Cells FEW #/HPF Urine Bacteria FEW Urine Glucose NORMAL Current Medications Medications (Trade) Dose Ordered Sig/Alberto Route PRN Reason Start Time Stop Time Status Last Admin Dose Admin Sodium Chloride 1,000 ml @ 1,200 mls/hr [id number] STAT IV 12/27/19 12:31 12/27/19 13:20 DC 12/27/19 12:50 Sodium Chloride 1,000 ml @ ud STK-MED ONCE .ROUTE 12/27/19 12:41 12/27/19 12:43 DC Sodium Chloride 1,000 ml @ 80 mls/hr [id number] STAT IV 12/27/19 14:10 12/28/19 02:39 12/27/19 14:25 Sodium Chloride 1,000 ml @ ud STK-MED ONCE .ROUTE 12/27/19 14:27 12/27/19 14:29 DC Course Sepsis Screening Results: Posi: NEGATIVE Sepsis Qualifier/Stage: NO DEFINITE RISK Duration or Total Time Spent w: 60 min Vitals & review Data Vital Sign - Last 24 Hours 12/27/19 12/27/19 12/27/19 12/27/19 12:23 12:23 12:23 13:00 Temp 97.3 97.3 97.3 97.3 Pulse 86 86 86 85 Resp 18 18 18 18 B/P (MAP) 141/79 (99) 122/61 (81) Pulse Ox 95 95 95 O2 Delivery Room Air Room Air 12/27/19 12/27/19 12/27/19 13:30 14:00 14:40 Temp 97.3 97.3 97.3 Pulse 81 81 86 Resp 18 18 18 B/P (MAP) 145/74 (97) 157/84 (108) 158/86 (110) Pulse Ox 95 95 95 O2 Delivery Room Air Room Air Room Air Laboratory Tests Test 12/27/19 12:41 12/27/19 13:30 White Blood Count 10.2 10^3/uL Red Blood Count 5.30 10^6/uL Hemoglobin 15.3 g/dL Hematocrit 45.0 % Mean Corpuscular Volume 84.9 fL Mean Corpuscular Hemoglobin 28.9 pg Mean Corpuscular Hemoglobin Concent 34.0 g/dL Red Cell Distribution Width 13.7 % Platelet Count 226 10^3/uL Mean Platelet Volume 9.9 fL Neutrophils (%) (Auto) 70.5 % Lymphocytes (%) (Auto) 17.5 % Monocytes (%) (Auto) 7.5 % Neutrophils # (Auto) 7.2 10^3/uL Lymphocytes # (Auto) 1.79 10^3/uL1 Monocytes # (Auto) 0.8 10^3/uL Absolute Immature Granulocyte (auto 0.31 10^3 u/L Absolute Eosinophils (auto) 0.1 10^3/uL Immature Granulocytes % 3.00 % Eosinophils % 1.0 % Basophils % 0.5 % Basophils # 0.1 10^3/uL Prothrombin Time 10.7 SEC Prothrombin Time INR (Non-Therap) 1.1 Activated Partial Thromboplast Time 25.2 SEC Sodium Level 136 mmol/L Potassium Level 4.1 mmol/L Chloride Level 100.0 mmol/L Carbon Dioxide Level 23.8 mmol/L Anion Gap 16.3 Blood Urea Nitrogen 38 mg/dL Creatinine 1.95 mg/dL Estimated GFR () 39.6 Est GFR (CKD-EPI)(Non-Afr Indonesian) 32.7 BUN/Creatinine Ratio 19.0 Glucose Level 166 mg/dL Calcium Level 9.4 mg/dL Total Bilirubin 0.5 mg/dL Aspartate Amino Transf (AST/SGOT) 16 U/L Alanine Aminotransferase (ALT/SGPT) 21 U/L Alkaline Phosphatase 93 U/L Total Creatine Kinase 43 U/L Creatine Kinase MB 1.6 ng/mL Troponin I 0.02 ng/mL Total Protein 7.0 g/dL Albumin 3.4 g/dL Globulin 3.6 Albumin/Globulin Ratio 0.944 Urine Collection Type UNKNOWN Urine Color YELLOW Urine Appearance CLEAR Urine Bilirubin NEGATIVE MG/DL Urine Ketones NEGATIVE Urine Specific [place] 1.025 Urine pH 5.5 Urine Protein 100 mg/dL Urine Urobilinogen 0.2 Urine Nitrate NEGATIVE Urine Leukocyte Esterase NEGATIVE Urine Blood TRACE Urine RBC 2-5 RBC/HPF Urine WBC 0-2 WBC/HPF Urine Squamous Epithelial Cells FEW #/HPF Urine Bacteria FEW Urine Glucose NORMAL Current Medications Medications (Trade) Dose Ordered Sig/Alberto PRN Reason Start Time Stop Time Status Last Admin Sodium Chloride 1,000 ml @ 80 mls/hr [id number] STAT 12/27/19 14:10 12/28/19 02:39 12/27/19 14:25 LEVEL 1 SEPSIS INFECTION CRITE: None/Not assessed LEVEL 2-SIRS (LIST ALL THAT AP: None/Not assessed Cardiovascular Evidence: Not Assessed or None Hematologic Evidence: None/Not assessed Hepatic Evidence: None/Not assessed Metabolic Evidence: None/Not assessed Neurological Evidence: None/Not assessed Respiratory Evidence: None/Not assessed Renal Evidence: None/Not assessed O2 Sat by Pulse Oximetry: 90 Assessment/Plan Assessment/Plan Assessment/Plan Assessment: 89-year-old male with frequent falls and new heart murmur who is generalized weakness and has not been doing well at home since the passing of his last week he is admitted to the hospitalist service for further evaluation and treatment of his renal insufficiency generalized weakness, adult failure to thrive and new onset heart murmur Plan: Heart murmur: Echocardiogram obtained and patient has severe MR with calcified valve likely not a surgical candidate given his comorbidities and age discussed with family LVEF 65-70% Recurrent falls: PT OT consult falls precaution--->home with home health Renal insufficiency: This appears to be chronic based on past creatinine levels we will continue to monitor DVT prophylaxis: SCDs and low-dose enoxaparin given kidney function Diabetes mellitus continue metformin twice daily Hypothyroidism continue levothyroxine Depression continue sertraline Dispo home health DNR on file and discussed with family JOHNATHAN HAMILTON MD Dec 28, 2019 11:48
--- NOTE | 2019-12-28 11:52 | PRM.DC ---
Discharge Summary Date of Discharge: Dec 28, 2019 Time of Request to Discharge: 17:02 Hospital Course Patient recently lost his and he has had recurrent falls at home he has had 2 ER visits recently with extensive imaging that symptoms show no fracture previous head CT negative for acute intracranial process and no head trauma since. Family reports that patient has not been able to mobilize as well after his fall and is having difficulty caring for himself at home despite starting home health daily. 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 He was found to have a new onset heart murmur in the setting of recurrent falls and is being admitted to the hospitalist service for failure to thrive recurrent falls renal insufficiency and further work-up of heart murmur Patient states that he feels great today and would like to go home. Talked to the family about severe mitral valve dysfunction and the decline intervention due to patient's advanced age and mental status, family would like patient to go home with home health Patient History: Cerebrovascular disorder 33 FATHER, , Age:60 years and older FH: prostate cancer V19 CHILD V19 CHILD V19 CHILD Unknown G8 BROTHER, G8 BROTHER, G8 BROTHER, No Family History of: Alzheimer's disease Asthma Chronic obstructive pulmonary disease Congestive heart failure Diabetes insipidus Diabetes mellitus Hypertension Parkinson's disease General: Alert, Cooperative HEENT: Atraumatic, PERRLA Neck: Supple, No JVD Lungs: Clear to auscultation Heart: Regular rate, Other (3/6 holosystolic murmur) Extremities: No clubbing, No cyanosis Skin: No breakdown Neuro: Normal gait, Strength at 5/5 X4 ext, Normal tone Psych/Mental Status: Mood NL Scheduled Levothyroxine Sodium (Levothyroxine Sodium), 1 TAB PO DAILY, (Reported) Metformin Hcl (Metformin Hcl), 1 TAB PO BID Probenecid (Probenecid), 500 MG PO DAILY24, (Reported) Sertraline Hcl (Zoloft), 1 TAB PO DAILY, (Reported) Discontinued Medications Ciprofloxacin Hcl (Cipro), 500 MG PO BID Discontinued Reason: Discontinue Diphenhydramine Hcl (Benadryl), 1 CAP PO HS PRN for SLEEP Discontinued Reason: Discontinue Inulin (Fiber Gummies), 1 TAB PO QD PRN for CONSTIPATION Discontinued Reason: Discontinue [place]-3 Fatty Acids/Fish Oil (Fish Oil 1,000 Mg Softgel), 1 CAP PO QD Discontinued Reason: Discontinue Sennosides (Senokot), 1 TAB PO BID Discontinued Reason: Discontinue Sertraline Hcl (Zoloft), 1 TAB PO DAILY, (Reported) Discontinued Reason: Discontinue [Flavoxate], 100 PO QID Discontinued Reason: Discontinue Sepsis Evaluation @ Discharge Vital Sign - Last 24 Hours 12/27/19 12/27/19 12/27/19 12/27/19 12:23 12:23 12:23 13:00 Temp 97.3 97.3 97.3 97.3 Pulse 86 86 86 85 Resp 18 18 18 18 B/P (MAP) 141/79 (99) 122/61 (81) Pulse Ox 95 95 95 O2 Delivery Room Air Room Air 12/27/19 12/27/19 12/27/19 13:30 14:00 14:40 Temp 97.3 97.3 97.3 Pulse 81 81 86 Resp 18 18 18 B/P (MAP) 145/74 (97) 157/84 (108) 158/86 (110) Pulse Ox 95 95 95 O2 Delivery Room Air Room Air Room Air Laboratory Tests Test 12/27/19 12:41 12/27/19 13:30 White Blood Count 10.2 10^3/uL Red Blood Count 5.30 10^6/uL Hemoglobin 15.3 g/dL Hematocrit 45.0 % Mean Corpuscular Volume 84.9 fL Mean Corpuscular Hemoglobin 28.9 pg Mean Corpuscular Hemoglobin Concent 34.0 g/dL Red Cell Distribution Width 13.7 % Platelet Count 226 10^3/uL Mean Platelet Volume 9.9 fL Neutrophils (%) (Auto) 70.5 % Lymphocytes (%) (Auto) 17.5 % Monocytes (%) (Auto) 7.5 % Neutrophils # (Auto) 7.2 10^3/uL Lymphocytes # (Auto) 1.79 10^3/uL1 Monocytes # (Auto) 0.8 10^3/uL Absolute Immature Granulocyte (auto 0.31 10^3 u/L Absolute Eosinophils (auto) 0.1 10^3/uL Immature Granulocytes % 3.00 % Eosinophils % 1.0 % Basophils % 0.5 % Basophils # 0.1 10^3/uL Prothrombin Time 10.7 SEC Prothrombin Time INR (Non-Therap) 1.1 Activated Partial Thromboplast Time 25.2 SEC Sodium Level 136 mmol/L Potassium Level 4.1 mmol/L Chloride Level 100.0 mmol/L Carbon Dioxide Level 23.8 mmol/L Anion Gap 16.3 Blood Urea Nitrogen 38 mg/dL Creatinine 1.95 mg/dL Estimated GFR () 39.6 Est GFR (CKD-EPI)(Non-Afr Icelandic) 32.7 BUN/Creatinine Ratio 19.0 Glucose Level 166 mg/dL Calcium Level 9.4 mg/dL Total Bilirubin 0.5 mg/dL Aspartate Amino Transf (AST/SGOT) 16 U/L Alanine Aminotransferase (ALT/SGPT) 21 U/L Alkaline Phosphatase 93 U/L Total Creatine Kinase 43 U/L Creatine Kinase MB 1.6 ng/mL Troponin I 0.02 ng/mL Total Protein 7.0 g/dL Albumin 3.4 g/dL Globulin 3.6 Albumin/Globulin Ratio 0.944 Urine Collection Type UNKNOWN Urine Color YELLOW Urine Appearance CLEAR Urine Bilirubin NEGATIVE MG/DL Urine Ketones NEGATIVE Urine Specific [place] 1.025 Urine pH 5.5 Urine Protein 100 mg/dL Urine Urobilinogen 0.2 Urine Nitrate NEGATIVE Urine Leukocyte Esterase NEGATIVE Urine Blood TRACE Urine RBC 2-5 RBC/HPF Urine WBC 0-2 WBC/HPF Urine Squamous Epithelial Cells FEW #/HPF Urine Bacteria FEW Urine Glucose NORMAL Current Medications Medications (Trade) Dose Ordered Sig/Alberto PRN Reason Start Time Stop Time Status Last Admin Sodium Chloride 1,000 ml @ 80 mls/hr [id number] STAT 12/27/19 14:10 12/28/19 02:39 12/27/19 14:25 Course Sepsis Screening Results: Posi: NEGATIVE Sepsis Qualifier/Stage: NO DEFINITE RISK Duration or Total Time Spent w: 60 min Vitals & review Data Vital Sign - Last 24 Hours 12/27/19 12/27/19 12/27/19 12/27/19 12:23 12:23 12:23 13:00 Temp 97.3 97.3 97.3 97.3 Pulse 86 86 86 85 Resp 18 18 18 18 B/P (MAP) 141/79 (99) 122/61 (81) Pulse Ox 95 95 95 O2 Delivery Room Air Room Air 12/27/19 12/27/19 12/27/19 13:30 14:00 14:40 Temp 97.3 97.3 97.3 Pulse 81 81 86 Resp 18 18 18 B/P (MAP) 145/74 (97) 157/84 (108) 158/86 (110) Pulse Ox 95 95 95 O2 Delivery Room Air Room Air Room Air Laboratory Tests Test 12/27/19 12:41 12/27/19 13:30 White Blood Count 10.2 10^3/uL Red Blood Count 5.30 10^6/uL Hemoglobin 15.3 g/dL Hematocrit 45.0 % Mean Corpuscular Volume 84.9 fL Mean Corpuscular Hemoglobin 28.9 pg Mean Corpuscular Hemoglobin Concent 34.0 g/dL Red Cell Distribution Width 13.7 % Platelet Count 226 10^3/uL Mean Platelet Volume 9.9 fL Neutrophils (%) (Auto) 70.5 % Lymphocytes (%) (Auto) 17.5 % Monocytes (%) (Auto) 7.5 % Neutrophils # (Auto) 7.2 10^3/uL Lymphocytes # (Auto) 1.79 10^3/uL1 Monocytes # (Auto) 0.8 10^3/uL Absolute Immature Granulocyte (auto 0.31 10^3 u/L Absolute Eosinophils (auto) 0.1 10^3/uL Immature Granulocytes % 3.00 % Eosinophils % 1.0 % Basophils % 0.5 % Basophils # 0.1 10^3/uL Prothrombin Time 10.7 SEC Prothrombin Time INR (Non-Therap) 1.1 Activated Partial Thromboplast Time 25.2 SEC Sodium Level 136 mmol/L Potassium Level 4.1 mmol/L Chloride Level 100.0 mmol/L Carbon Dioxide Level 23.8 mmol/L Anion Gap 16.3 Blood Urea Nitrogen 38 mg/dL Creatinine 1.95 mg/dL Estimated GFR () 39.6 Est GFR (CKD-EPI)(Non-Afr Icelandic) 32.7 BUN/Creatinine Ratio 19.0 Glucose Level 166 mg/dL Calcium Level 9.4 mg/dL Total Bilirubin 0.5 mg/dL Aspartate Amino Transf (AST/SGOT) 16 U/L Alanine Aminotransferase (ALT/SGPT) 21 U/L Alkaline Phosphatase 93 U/L Total Creatine Kinase 43 U/L Creatine Kinase MB 1.6 ng/mL Troponin I 0.02 ng/mL Total Protein 7.0 g/dL Albumin 3.4 g/dL Globulin 3.6 Albumin/Globulin Ratio 0.944 Urine Collection Type UNKNOWN Urine Color YELLOW Urine Appearance CLEAR Urine Bilirubin NEGATIVE MG/DL Urine Ketones NEGATIVE Urine Specific [place] 1.025 Urine pH 5.5 Urine Protein 100 mg/dL Urine Urobilinogen 0.2 Urine Nitrate NEGATIVE Urine Leukocyte Esterase NEGATIVE Urine Blood TRACE Urine RBC 2-5 RBC/HPF Urine WBC 0-2 WBC/HPF Urine Squamous Epithelial Cells FEW #/HPF Urine Bacteria FEW Urine Glucose NORMAL Current Medications Medications (Trade) Dose Ordered Sig/Alberto PRN Reason Start Time Stop Time Status Last Admin Sodium Chloride 1,000 ml @ 80 mls/hr [id number] STAT 12/27/19 14:10 12/28/19 02:39 12/27/19 14:25 LEVEL 1 SEPSIS INFECTION CRITE: None/Not assessed LEVEL 2-SIRS (LIST ALL THAT AP: None/Not assessed Cardiovascular Evidence: Not Assessed or None Hematologic Evidence: None/Not assessed Hepatic Evidence: None/Not assessed Metabolic Evidence: None/Not assessed Neurological Evidence: None/Not assessed Respiratory Evidence: None/Not assessed Renal Evidence: None/Not assessed O2 Sat by Pulse Oximetry: 90 Plan Assessment Assessment: 89-year-old male with frequent falls and new heart murmur who is generalized weakness and has not been doing well at home since the passing of his last week he is admitted to the hospitalist service for further evaluation and treatment of his renal insufficiency generalized weakness, adult failure to thrive and new onset heart murmur Plan: Heart murmur: Echocardiogram obtained and patient has severe MR with calcified valve likely not a surgical candidate given his comorbidities and age discussed with family LVEF 65-70% Recurrent falls: PT OT consult falls precaution--->home with home health Renal insufficiency: This appears to be chronic based on past creatinine levels we will continue to monitor DVT prophylaxis: SCDs and low-dose enoxaparin given kidney function Diabetes mellitus continue metformin twice daily Hypothyroidism continue levothyroxine Depression continue sertraline Dispo home health DNR on file and discussed with family JOHNATHAN HAMILTON MD Dec 28, 2019 11:52
[2019-12-28 12:39] VITALS: BP 136/77
--- NOTE | 2019-12-28 13:48 | NUR ---
Discharge Discharge instructions given to pt. Educated pt on continuing home medications. Pt able to verbalize understanding. Answered all pt questions and family member questions. No further questions or concerns. Transferred pt off unit via wheelchair to personal vehicle. No s/s of distress noted.
== END 2019-12-28 13:59 | disposition home health service (06) ==
LOC: ER 11:59 → INTOOBSV 14:11 → MS 14:11 → UNDOADMOB 14:11 → MS 14:11 → UNDODISOB 12-28 13:59
PROVIDERS: ADMIT Family Medicine; ATTEND Family Medicine
DX: N28.9 Disorder of kidney and ureter, unspecified (principal); R01.1 Cardiac murmur, unspecified; E86.0 Dehydration; R62.7 Adult failure to thrive; R29.6 Repeated falls; E11.9 Type 2 diabetes mellitus without complications; E03.9 Hypothyroidism, unspecified; F32.9 Major depressive disorder, single episode, unspecified; Z79.84 Long term (current) use of oral hypoglycemic drugs; Z79.899 Other long term (current) drug therapy; Z66 Do not resuscitate
CPT/HCPCS: 36415 ×2; 71045; 72192; 80053 ×2; 81000; 82550; 82553; 82948 ×2; 84484; 85025 ×2; 85610; 85730; 87086; 93005; 93306; 96361 ×2; 96372; 96374; 97162; 99285; G0378 ×2; J1650; J2405; J3490 ×4; J7030 ×3

== ENCOUNTER 2019-12-30 04:39 | Emergency (ER) | payer MEDICARE ==
[~2019-12-30] VITALS: Ht 188 cm; Wt 81.2 kg
[~2019-12-30 04:39] MED LIST changes: +LEVO25TA4 PO
--- NOTE | 2019-12-30 04:48 | ER.PDOC ---
General Chief Complaint: Requesting Medical Care Stated Complaint: FALL Time seen by MD: 04:41 Source: EMS Exam Limitations: clinical condition (patient is confused and unable to relate history) History of Present Illness Initial Comments EMS reports patient found down (unknown duration) by daughter, confused, unable to get up. EMS reported cough enroute to hospital and we know patient was inpatient at this facility earlier this week. Occurred: other (unknown duration) Where: home Injuries/Pain Location: head, upper extremity (right elbow) Context: Unknown Loss of Consciousness: Unsure Associated Symptoms: other (hurts all over) Allergies: Coded Allergies: No Known Allergies (Unverified , 04/19/19) MEDS Active Scripts Metformin Hcl (METFORMIN HCL) 500 Mg Tablet, 1 TAB PO BID, #60 TAB 3 Refills Prov:BRUNA ABARCA MD 04/20/19 Reported Medications Levothyroxine Sodium (LEVOTHYROXINE SODIUM) 25 Mcg Tablet, 1 TAB PO DAILY, #90 TAB 3 Refills 12/27/19 Sertraline Hcl (ZOLOFT) 100 Mg Tablet, 1 TAB PO DAILY, #30 TAB 5 Refills 04/19/19 Probenecid (PROBENECID) 500 Mg Tablet, 500 MG PO DAILY24, TAB 04/19/19 Discontinued Reported Medications Sertraline Hcl (ZOLOFT) 100 Mg Tablet, 1 TAB PO DAILY, #30 TAB 2 Refills 12/27/19 Discontinued Scripts Ciprofloxacin Hcl (CIPRO) 500 Mg Tablet, 500 MG PO BID, #20 Prov:HEATHER VALDES MD 04/22/19 Inulin (Fiber Gummies) 2 Gram Tab.chew, 1 TAB PO QD PRN for CONSTIPATION for 30 Days, #30 TAB 0 Refills Prov:BRUNA ABARCA MD 04/20/19 Diphenhydramine Hcl (BENADRYL) 25 Mg Capsule, 1 CAP PO HS PRN for SLEEP for 30 Days, #30 CAP 0 Refills Prov:BRUNA ABARCA MD 04/20/19 [place]-3 Fatty Acids/Fish Oil (FISH OIL 1,000 MG SOFTGEL) 1 Each Capsule, 1 CAP PO QD for 30 Days, #30 CAP 0 Refills Prov:BRUNA ABARCA MD 04/20/19 Sennosides (SENOKOT) 8.6 Mg Tablet, 1 TAB PO BID for 20 Days, #40 TAB 0 Refills Prov:BRUNA ABARCA MD 04/20/19 [Flavoxate] No Conflict Check, 100 PO QID Prov:BRUNA ABARCA MD 04/20/19 Past Medical History Medical History: cancer, diabetes, thyroid disease, other (dementia) Surgical History: cancer surgery Family History Significant Family History: no pertinent family hx Social History Smoking: non-smoker Alcohol Use: none Drug Use: none Physical Exam General Appearance: No Apparent Distress, Obese Head: No Evidence of Injury Eyes: bilateral eye normal inspection, bilateral eye PERRL, bilateral eye EOMI Ears, Nose, Mouth, Throat: Hearing Grossly Normal, No Evidence of ENT Injury Neck: Non-Tender, Normal Alignment Cardiovascular/Respiratory: Regular Rate, Rhythm, Normal Breath Sounds, No Respiratory Distress Gastrointestinal: Normal Bowel Sounds, Non Tender, Soft Back: No CVA Tenderness, No Vertebral Tenderness Extremities: Bony-Point Tenderness (right elbow) Neurologic/Psychiatric: Alert, Normal Mood/Affect Skin: Normal Color, Warm/Dry Shanita Coma Score Best Eye Response: (4) Open Spontaneously Best Verbal Response: (5) Oriented Best Motor Response: (6) Obeys Commands Results/Orders Results/Orders Orders - PONCHO MENARD DO Cbc With Auto Diff (12/30/19 04:55) Comprehensive Metabolic Panel (12/30/19 04:55) Creatine Kinase (12/30/19 04:55) PT (12/30/19 04:55) Xr Chest 1v (12/30/19 04:55) Partial Thromboplastin Time. (12/30/19 04:55) Troponin I (12/30/19 04:55) Urinalysis (12/30/19 04:55) Ekg-Routine (12/30/19 04:55) Ct Head Wo Contrast (12/30/19 04:55) Saline Lock (12/30/19 04:55) Xr Pelvis (12/30/19 04:55) Xr Elbow Rt (12/30/19 04:55) 0.9 % Sodium Chloride (Ns 1000ml) (12/30/19 04:55) Influenza A&B (12/30/19 05:00) Strep Screen (12/30/19 05:00) Novel Coronavirus 2019(Dshs) (12/30/19 05:00) Lorazepam (Ativan) (12/30/19 05:56) Vital Signs Date Time Temp Pulse Resp B/P (MAP) Pulse Ox O2 Delivery O2 Flow Rate FiO2 12/30/19 05:51 100.3 88 18 174/90 (118) 96 Room Air 12/30/19 05:01 18 12/30/19 04:55 97.9 88 18 168/88 (114) 99 Room Air 12/30/19 04:55 97.9 88 18 12/30/19 04:55 97.9 88 18 99 Administered Medications Medications (Trade) Dose Ordered Sig/Alberto Route PRN Reason Start Time Stop Time Status Last Admin Dose Admin Lorazepam (Ativan) 1 mg STAT STAT IV 12/30/19 05:56 12/30/19 05:57 UNV 12/30/19 06:00 1 MG Sodium Chloride 1,000 ml @ 150 mls/hr STAT STAT IV 12/30/19 04:55 12/30/19 11:34 UNV 12/30/19 05:49 150 MLS/HR Laboratory Tests Test 12/30/19 05:20 12/30/19 05:30 White Blood Count 15.0 10^3/uL (4.5-11.0) H Red Blood Count 5.34 10^6/uL (4.50-5.90) Hemoglobin 15.7 g/dL (13.9-16.3) Hematocrit 45.8 % (37.0-53.0) Mean Corpuscular Volume 85.8 fL (78-100) Mean Corpuscular Hemoglobin 29.4 pg (26-34) Mean Corpuscular Hemoglobin Concent 34.3 g/dL (33-36.5) Red Cell Distribution Width 13.6 % (11.5-14.5) Platelet Count 203 10^3/uL (150-400) Mean Platelet Volume 10.4 fL (7.8-11.0) Neutrophils (%) (Auto) 86.7 % (41.0-85.0) H Lymphocytes (%) (Auto) 7.1 % (24.0-44.0) L Monocytes (%) (Auto) 3.8 % (5.0-12.0) L Neutrophils # (Auto) 13.0 10^3/uL (1.8-7.7) H Lymphocytes # (Auto) 1.06 10^3/uL1 (1.0-4.8) Monocytes # (Auto) 0.6 10^3/uL (0.3-0.8) Absolute Immature Granulocyte (auto 0.32 10^3 u/L (0-2) Absolute Eosinophils (auto) 0.0 10^3/uL (0.0-0.2) Immature Granulocytes % 2.10 % (0.00-0.50) H Eosinophils % 0.1 % (0.0-5.0) Basophils % 0.2 % (0.0-0.2) Basophils # 0.0 10^3/uL (0.0-0.1) Prothrombin Time 11.2 SEC (9.3-11.3) Prothrombin Time INR (Non-Therap) 1.1 Activated Partial Thromboplast Time 21.8 SEC (24.67-30.72) Sodium Level 136 mmol/L (132-145) Potassium Level 4.1 mmol/L (3.6-5.2) Chloride Level 101.0 mmol/L (96-109) Carbon Dioxide Level 20.3 mmol/L (20.0-32) Anion Gap 18.8 Blood Urea Nitrogen 33 mg/dL (7-18) H Creatinine 2.08 mg/dL (0.59-1.40) *H Estimated GFR () 36.7 (>/=60) Est GFR (CKD-EPI)(Non-Afr [place]) 30.4 (>/=60) BUN/Creatinine Ratio 15.0 Glucose Level 202 mg/dL (70-110) H Calcium Level 9.3 mg/dL (8.4-10.5) Total Bilirubin 0.5 mg/dL (0.2-1.0) Aspartate Amino Transferase (AST) 20 U/L (0-35) Alanine Aminotransferase (ALT) 22 U/L (12-78) Alkaline Phosphatase 104 U/L (50-136) Total Creatine Kinase 52 U/L (39-308) Troponin I < 0.02 ng/mL (0.00-0.05) Total Protein 7.8 g/dL (6.4-8.2) Albumin 3.7 g/dL (3.4-5.0) Globulin 4.1 Albumin/Globulin Ratio 0.902 Influenza Type A Antigen NEGATIVE (NEG) Influenza B Immunofluorescence NEGATIVE (NEG) Group A Streptococcus Screen NEGATIVE (NEGATIVE) Progress Progress unable to obtain ROS d/t patient's level of confusion WBC 15 BUN 33 creat 2.08 (up from 1.69 earlier this week) total CK WNL strep negative EKG/XRAY/CT/US EKG Comments: VR 88, 1st degree AV block, QT 425, no acute STT changes XRAY: chest (no acuate process) XRAY Comments: avulsion/chip fx @ [facility]; pelvis normal CT Comments: age related changes ER DEPART Departure Time of Disposition: 06:42 Disposition: 01 HOME, SELF-CARE Impression: Primary Impression: Fall Additional Impressions: Volume depletion Suspected 2019 novel coronavirus infection Elbow fracture, right Condition: Stable Patient Instructions: Dehydration, Adult, Fall Prevention and Home Safety Referrals: DAVID LESLIE SQUEEGEE OPERATOR (PCP) PRIMARY CARE PROVIDER REZA DAS MD Additional Instructions: Sequester at home until your COVID19 results are known. Drink at least 6 six ounce tolbert daily. Ambulate with assistance only. Return to ER for any emergent concerns. Pad elbow for comfort. Follow up with Dr. Das for possible elbow fracture. Follow up with your doctor next week for reevaluation. Duration or Time Spent with Pa: 25 min Problem Qualifiers Primary Impression: Fall Encounter type: initial encounter Qualified Codes: W19.XXXA - Unspecified fall, initial encounter Additional Impressions: Elbow fracture, right Encounter type: initial encounter Fracture type: closed Qualified Codes: S42.401A - Unspecified fracture of lower end of right humerus, initial encounter for closed fracture PONCHO MENARD DO Dec 30, 2019 04:48
[2019-12-30 04:55] VITALS: BP 168/88
[2019-12-30] MEDS ORDERED: NS 1000ML 1,000 ML IV STA (04:55)
[2019-12-30] MEDS ORDERED: NS 1000ML 1,000 ML ONE (05:05)
[2019-12-30 05:27] LABS: BASOPHIL % 0.2 % (0.0-0.2); EOSINOPHIL % 0.1 % (0.0-5.0); LYMPHOCYTES # 1.06 10^3/uL1 (1.0-4.8); LYMPHOCYTES % 7.1 % (24.0-44.0); MEAN CORP HGB 29.4 pg (26-34); MONOCYTES # 0.6 10^3/uL (0.3-0.8); MONOCYTES % 3.8 % (5.0-12.0); NEUTROPHILS % 86.7 % (41.0-85.0); PLATELET COUNT 203 10^3/uL (150-400); RED CELL DISTRIBUTION WIDTH 13.6 % (11.5-14.5)
--- NOTE | 2019-12-30 05:29 | PCM.EKG ---
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
--- NOTE | 2019-12-30 05:40 | NUR ---
CHOI ATTEMPTED TO PLACE CHOI, UNSUCCESSFUL
--- NOTE | 2019-12-30 05:45 | NUR ---
SWABS COLLECTED AND TAKEN TO LAB
[2019-12-30 05:49] LABS: ALANINE AMINOTRANSFERASE(ML) 22 U/L (12-78); ALKALINE PHOSPHATASE 104 U/L (50-136); ASPARTATE AMINO TRANSFERASE 20 U/L (0-35); CALCIUM 9.3 mg/dL (8.4-10.5); CARBON DIOXIDE 20.3 mmol/L (20.0-32); GLUCOSE 202 mg/dL (70-110)
--- NOTE | 2019-12-30 05:49 | NUR ---
UPDATE EDP ON PHONE WITH DAUGHTER, EXPLAINED REASONING FOR TESTING FOR COVID AND OTHER TESTING
--- NOTE | 2019-12-30 05:50 | NUR ---
TO CT PATIENT TO CT VIA STRETCHER WITH DANIEL
[2019-12-30 05:51] VITALS: BP 174/90
[2019-12-30] MEDS ORDERED: ATIVAN ONE (05:54)
[2019-12-30] MEDS ORDERED: ATIVAN IV STA (05:56)
--- NOTE | 2019-12-30 06:37 | DIREP ---
PROCEDURE:CT HEAD OR BRAIN W/O CONTRAST COMPARISON:[facility], CT, CT HEAD BRAIN W/O CONTRAST, 12/14/2019, 06:45 PM. INDICATIONS:altered mental status TECHNIQUE:CT images were created without intravenous contrast. FINDINGS: VENTRICLES:Stable in size and configuration with ex vacuo dilatation. CEREBRUM:Mild generalized atrophy. Small foci of diminished attenuation in the supratentorial white matter consistent with mild leukoaraiosis. CEREBELLUM:Negative. BRAINSTEM:Negative. BASAL CISTERNS:Negative. HEMORRHAGE:No MASS LESION:No ACUTE INFARCT:No SKULL:Normal. SINUSES:Polyp or mucus retention cyst in the right maxillary sinus. OTHER:Intracranial vascular calcifications noted. CONCLUSION:No acute intracranial abnormality or significant interval change. Dictated by: Forrest Zamora MD. on 12/30/2019 at 06:33 AM
--- NOTE | 2019-12-30 06:38 | DIREP ---
PROCEDURE:XRAY ELBOW 2VWS-RT COMPARISON:None. INDICATIONS:fall injury FINDINGS: BONES:No acute fracture identified. Triceps tendon insertion enthesophyte. JOINTS:No dislocation. Mildly displaced anterior fat pad. Posterior fat pad is not displaced. SOFT TISSUES:Mild atherosclerosis. OTHER:Normal. CONCLUSION:Possible joint effusion concerning for radiographically occult radial head fracture. Dictated by: Forrest Zamora MD. on 12/30/2019 at 06:35 AM
--- NOTE | 2019-12-30 06:40 | DIREP ---
PROCEDURE:XRAY PELVIS 1-2 VWS COMPARISON:[facility], , XRAY PELVIS 1-2 VWS, 12/08/2017, 11:55 AM. INDICATIONS:fall 3 FILMS FINDINGS: BONES:No fracture identified within the limitation of osteopenia. If there is high clinical concern for acute fracture, further evaluation with CT would be of benefit. JOINTS:No dislocation or symphysis pubis or sacroiliac joint diastasis. SOFT TISSUES:Normal. OTHER:No additional findings. CONCLUSION:No acute abnormality noted. Dictated by: Forrest Zamora MD. on 12/30/2019 at 06:37 AM
--- NOTE | 2019-12-30 06:43 | DIREP ---
PROCEDURE:CHEST 1 VIEW COMPARISON:[facility], CR, XRAY CHEST SINGLE VW, 12/27/2019, 12:42 PM. [facility], CR, XRAY CHEST 2 VWS, 11/18/2019, 08:21 AM. INDICATIONS:fall 2 FILMS FINDINGS: LUNGS/PLEURA:Interstitial opacities with peripheral predominance are similar to prior. No consolidation, effusion, or pneumothorax is seen. VASCULATURE:Normal. Unremarkable pulmonary vasculature. CARDIAC:Normal. No cardiac silhouette abnormality or cardiomegaly. MEDIASTINUM:Normal. No visible mass or adenopathy. BONES:Normal. No fracture or visible bony lesion. OTHER:Negative. CONCLUSION: 1. No radiographic evidence of acute thoracic trauma. 2. Interstitial opacities with peripheral predominance, similar to prior. Dictated by: Forrest Zamora MD. On 12/30/2019 at 06:39 AM
--- NOTE | 2019-12-30 06:54 | NUR ---
SPLINT 4X4 PADDING, SOFT ROLL, 3" ORTHO GLASS, KUSUM WRAP PLACED TO RIGHT ELBOW. ARM PLACED IN SHOULDER IMMOBILIZER.
== END 2019-12-30 06:58 | disposition home or self-care (01) ==
LOC: EDBD 04:39 → ER 04:39
DX: S42.401A Unspecified fracture of lower end of right humerus, initial encounter for closed fracture (principal); E86.9 Volume depletion, unspecified; Z20.828 Contact with and (suspected) exposure to other viral communicable diseases; W19.XXXA Unspecified fall, initial encounter; Y93.89 Activity, other specified; Y92.098 Other place in other non-institutional residence as the place of occurrence of the external cause; Y99.8 Other external cause status
CPT/HCPCS: 29105; 36415; 70450; 71045; 72170; 73070; 80053; 82550; 84484; 85025; 85610; 85730; 87070; 87635; 87804 ×2; 87880; 93005; 96361; 96374; 99285; J2060; J7030